=== PATIENT | male | born 1995 | race Caucasian/White ===

== ENCOUNTER 2021-04-10 16:17 | Emergency (ER) | payer MEDICAID ==
[2021-04-10 16:23] VITALS: BP 139/87
--- NOTE | 2021-04-10 16:47 | XRAY Report ---
PROCEDURE: Hand 3 View RT INDICATIONS: Trauma TECHNIQUE: 3 views of the hand(s) acquired. COMPARISON: None FINDINGS: Bones: No fractures or dislocations. No suspicious bony lesions. Soft tissues: No suspicious soft tissue calcifications. IMPRESSION: No acute right hand fracture or dislocation. Reviewed by: Pipo Watson MD on 04/10/2021 4:46 PM PST Approved by: Pipo Watson MD on 04/10/2021 4:46 PM PST Station ID: [id number]
--- NOTE | 2021-04-10 17:14 | ED Physician Documentation ---
PD HPI UPPER EXT INJURY - Stated complaint Stated Complaint: RT HAND INJURY - Chief complaint Chief Complaint: Ext Problem - History obtained from History obtained from: Patient - History of Present Illness Location: Right, Hand Type of injury: Fall Where injury occurred: Street Timing - onset: How many days ago (2) Timing - duration: Days (2) Timing - details: Abrupt onset, Still present Improved by: Rest, Ice, Immobilization Worsened by: Moving, Palpating Associated symptoms: Swelling. No: Weakness, Numbness, Tingling, Discolored Contributing factors: No: Anticoagulated Similar symptoms before: Has not had sx before Recently seen: Not recently seen - Additonal information Additional information: Previously well 25-year-old male reports that he was running when he tripped and fell and landed on his outstretched right fist. He has bruising to his knuckles. He has swelling to the dorsum of the hand. 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 He is able to flex and extend his fingers and he is able to flex and extend his wrist. Review of Systems Constitutional: denies: Fever Eyes: denies: Decreased vision Ears: denies: Ear pain Nose: denies: Congestion Throat: denies: Sore throat Respiratory: denies: Cough GI: denies: Vomiting PD PAST MEDICAL HISTORY - Allergies Allergies/Adverse Reactions: Allergies Allergy/AdvReac Type Severity Reaction Status Date / Time No Known Drug Allergies Allergy Verified 04/10/21 16:21 PD ED PE NORMAL - Vitals Vital signs reviewed: Yes (hypertensive ) - General General: Alert and oriented X 3, No acute distress, Well developed/nourished - HEENT HEENT: Atraumatic, PERRL, EOMI - Respiratory Respiratory: No respiratory distress - Derm Derm: Normal color, Warm and dry, No rash - Extremities Extremities: Other (There is swelling and tenderness to the dorsum of the right hand over the distal metacarpals. He is able to flex and extend at the metacarpophalangeal joint and the interphalangeal joints as well the distal neurovascular components are intact. No crepitance) - Neuro Neuro: Alert and oriented X 3, car ferry master 2-12 intact, No motor deficit, No sensory deficit, Normal speech Eye Opening: Spontaneous Motor: Obeys Commands Verbal: Oriented GCS Score: 15 - Psych Psych: Normal mood, Normal affect Results - Vitals Vitals: Vital Signs - 24 hr 04/10/21 16:21 Temperature 36.7 C Heart Rate 63 Respiratory 16 Rate Blood Pressure 139/87 H O2 Saturation 98 Oxygen O2 Source Room air - Rads (name of study) hand Radiology: Prelim report reviewed (Impression: No right hand fracture or dislocation.), EMP read indepedently, See rad report PD MEDICAL DECISION MAKING - ED course Complexity details: reviewed results, re-evaluated patient, considered differential, d/w patient ED course: 25-year-old male who reports a punch to the ground and an accidental fall and bruising to his knuckles. I was not able to get a history of punching the wall. 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 He is placed into a volar splint for comfort and instructed to use it for 2 days to 2 weeks and we will give him follow-up with orthopedics as needed. Departure - Departure Disposition: 01 Home, Self Care Clinical Impression: Contusion of hand, right Qualifiers: Encounter type: initial encounter Qualified Code(s): S60.221A - Contusion of right hand, initial encounter Condition: Stable Instructions: ED Contusion Hand Follow-Up: Ryland Sutherland MD [Provider Admit Priv/Credential] -
== END 2021-04-10 17:28 | disposition home or self-care (01) ==
LOC: ED 16:17
DX: S60.211A Contusion of right wrist, initial encounter (principal); W01.0XXA Fall on same level from slipping, tripping and stumbling without subsequent striking against object, initial encounter; Y93.02 Activity, running; Y92.410 Unspecified street and highway as the place of occurrence of the external cause
CPT/HCPCS: 99282; 99283